=== PATIENT | male | born 1985 | race Caucasian/White ===

== ENCOUNTER 2019-09-21 00:12 | Emergency (ER) | payer MEDICAID ==
[~2019-09-21] VITALS: Ht 165.1 cm; Wt 81.6 kg
[2019-09-21 00:18] VITALS: Ht 165.1 cm; Wt 81.6 kg
[2019-09-21 01:25] LABS: BASOPHIL % 0.9 % (0-2); PLATELET COUNT 249 x10^3mcL (130-400); RED CELL DISTRIBUTION WIDTH 13.5 % (11.5-14.5)
[2019-09-21 01:49] LABS: CALCIUM 8.7 mg/dL (8.5-10.1); CARBON DIOXIDE 25.6 mmol/L (21-32); CHLORIDE SERUM 100 mmol/L (98-107); CREATININE SERUM 0.9 mg/dL (0.7-1.3); GFR1 > 60 mL/min; GLUCOSE SERUM 115 mg/dL (74-106); POTASSIUM SERUM 3.8 mmol/L (3.5-5.1); SODIUM SERUM 139 mmol/L (136-145)
[2019-09-21 02:32] LABS: ALBUMIN 3.9 g/dL (3.4-5.0); TOTAL PROTEIN, SERUM 7.3 g/dL (6.4-8.2)
[2019-09-21 02:33] LABS: ALKALINE PHOSPHATASE 109 U/L (46-116); ALT/SGPT 129 U/L (16-63); AMYLASE 78 U/L (25-115); AST/SGOT 175 U/L (15-37); LIPASE 405 IU/L (73-393)
[2019-09-21 05:38] VITALS: BP 143/100
== END 2019-09-21 05:38 | disposition home or self-care (01) ==
LOC: ED 00:12
PROVIDERS: Emergency Medicine
DX: F19.10 Other psychoactive substance abuse, uncomplicated (principal); K29.20 Alcoholic gastritis without bleeding; K85.20 Alcohol induced acute pancreatitis without necrosis or infection; F11.10 Opioid abuse, uncomplicated
CPT/HCPCS: C9113; G0480; J1200; J2310; J2405; J2765; J3411; J3475; J3490; J7030